=== PATIENT | male | born 1970 | race Caucasian/White ===

== ENCOUNTER 2018-01-30 07:36 | Day surgery (SDC) | payer BC ==
[~2018-01-30 07:36] MED LIST: ACETAMINOPHEN 1,000 MG/100 ML BTL IV ONE; FAMOTIDINE 20MG TABLET PO ONE; MECLIZINE 25 MG TABLET PO ONE; METOCLOPRAMIDE 10 MG TABLET PO ONE; VANCOMYCIN HCL 1,000 MG in DEXTROSE 5 % IN WATER 250 ML IVPB ONE
[2018-01-30] MEDS ORDERED: PROPOFOL 10 MG/ML VIAL IV ONE (07:37)
[2018-01-30] MEDS ORDERED: HYDROMORPHONE HCL 2 MG/ML VIAL IV ONE (07:37)
[2018-01-30] MEDS ORDERED: CLINDAMYCIN IVPB ONE (07:37)
[2018-01-30] MEDS ORDERED: *PACU ONLY* KETAMINE HCL 10 MG/ML (20ML) VIAL IV ONE (07:37)
[2018-01-30] MEDS ORDERED: HYDROCODONE/APAP 7.5/325MG TABLET PO ONE (07:37)
[2018-01-30] MEDS ORDERED: MIDAZOLAM HCL 2MG/2ML VIAL IV ONE (07:37)
[2018-01-30] MEDS ORDERED: FENTANYL PF 100MCG/2ML VIAL IV ONE (07:37)
[2018-01-30] MEDS ORDERED: BUPIVACAINE 0.5% W/EPI MPF 30 ML VIAL IVP ONE (07:37)
[2018-01-30] MEDS ORDERED: SEVOFLURANE 250 ML INH ONE (07:37)
--- NOTE | 2018-01-30 21:52 | Operative Note ---
DATE: 01/30/2018 PREOPERATIVE DIAGNOSIS: ACL DEFICIENT LEFT KNEE. POSTOPERATIVE DIAGNOSES: 1. ACL DEFICIENT LEFT KNEE. 2. FLAP TEAR INVOLVING THE POSTERIOR HORN OF THE LATERAL MENISCUS. PROCEDURE: 1. LEFT KNEE ARTHROSCOPY WITH ARTHROSCOPIC-ASSISTED ACL RECONSTRUCTION USING A CENTRAL ONE-THIRD BONE-PATELLAR TENDON-BONE AUTOGRAFT. 2. LEFT KNEE ARTHROSCOPY WITH PARTIAL LATERAL MENISCECTOMY. 3. BONE-PATELLAR TENDON-BONE AUTOGRAFT PROCUREMENT. STAFF SURGEON: STELLA DESAI M.D. ANESTHESIA: GENERAL. PREPARATION: CHLORAPREP. INDIVIDUAL CONSIDERATIONS: NONE. PROCEDURE: The patient was taken to the Operating Room and placed supine on the operating table. He had a successful induction with general anesthetic. His left lower extremity was prepped and draped in the usual fashion. Examination under anesthesia showed a slight increased excursion of Michelle's and a hint of a slide but no complete pivot. The knee was then prepped and draped in the usual fashion. The patient had a superior medial inflow cannula placed. The knee was inflated with normal saline after draining a clear effusion. An inferior medial and an inferior lateral portal were made in a similar fashion. The arthroscope was introduced through the inferior lateral portal up into the pouch. The patellofemoral compartment was basically normal. No loose bodies were seen in the pouch or either gutter. Medially, the medial compartment structures were well seen and probed and found to be normal including the medial meniscus and medial articular cartilage, although there were some areas of fissuring. In the notch, everything looked good in the mucosa but the ACL was basically pulled off , I would say 90% off the femur was incompetent with drawer. Lateral compartment showed some fissuring of the femur but a flap tear involving the posterior horn of the lateral meniscus, which was debrided back to a stable rim with basket forceps and a shaver. Using a motorized grayson, the ACL stump was debrided out and a generous notchplasty was performed. There was a large posterior ridge. The arthroscopy instruments were removed and at this point I did actually elevate the tourniquet to 250 mmHg. The patient had an incision from the patella to the tibial tubercle anteriorly for procurement. The skin was infiltrated with 0.5% Marcaine with Epinephrine prior. Sharp dissection carried down through the skin and subcutaneous tissues. Small veins were coagulated with a Bovie. The paratenon was thick and opened along the entire length of the incision. Using a motorized saw and graft knife, I was able to take a graft with bony blocks roughly 10 x 20-25 mm off the patella and off the tibia with a strip of central third tendon. The tendon wasn' t very wide. The graft was smoothed and fashioned and tapered and #5 Ethibond sutures were placed through holes through either end. I placed it through a sizer and it was found that a 10 mm tunnel would be appropriate. This was irrigated and then placed off into a covered tray. The patient had about a 5 cm incision over the iliotibial band laterally. Again , the skin was infiltrated with 0.5% Marcaine with Epinephrine. Sharp dissection carried down through the skin and subcutaneous tissues. Small veins were coagulated with a Bovie. The iliotibial band was opened laterally. The vastus was brought anteriorly. With the scope inferior medially, the rear entry guide passer was placed through the inferior lateral portal, through the notch, and out through the lateral wound. The rear entry guide passer was hooked onto this. The 1 o'clock position was obtained most posteriorly and a guide pin was drilled across. An 11 mm tunnel was then drilled over the guide pin. In a similar fashion using the tibial guide and aimer, a 10 mm tunnel was drilled on the tibial side through the central footprint of the ACL and tibia. The [place] smoother passer was placed through the knee. There was no impingement and there was actually complete isometry. When I moved it from full flexion and extension , it moved less than 1 mm. The graft was hooked onto this, passed through and tensioned. It was secured with an Interference screw on the femoral side with a 7 x 20 and a 9 x 20 on the tibial side. I checked the Michelle's and pivot. The knee was completely stable and there was no graft impingement as seen by arthroscopy. After irrigation in the lateral wound, the iliotibial band was closed with a running #1 Vicryl. The subcu was closed with 2-0 Plus Vicryl. The skin was closed with malinda. In the anterior wound, reamings and bone graft were used to fill the patellar defect. The patellar tendon was closed after irrigation with multiple running #1 Vicryl. The paratenon was closed with 2-0 Plus Vicryl. The subcu was closed with 2-0 Plus Vicryl and the skin was closed with malinda. Prior to closing, all wounds were irrigated out with Betadine and saline including intraarticularly with the scope and scope sheath. A sterile Bulkee compressive dressing was applied. I did inject the knee with 15 mL of 0.5% Marcaine with Epinephrine prior. The patient tolerated the procedures well. Needle and sponge counts were correct. Estimated blood loss was minimal and he was taken back to Recovery in good condition. There were no complications. JOB NUMBER: [id number] MTDD
== END 2018-01-30 13:25 | disposition home or self-care (01) ==
LOC: SUR 07:36
PROVIDERS: ATTEND Orthopaedic Surgery
DX: S83.282A Other tear of lateral meniscus, current injury, left knee, initial encounter (principal); I10 Essential (primary) hypertension; F41.8 Other specified anxiety disorders
CPT/HCPCS: 29888; 29881; 27427; 01400; J3370; J3010; J1170; J7060